=== PATIENT | female | born 1985 | race African-American/Black ===

== ENCOUNTER 2018-03-08 03:06 | Emergency (ER) | payer MEDICAID, OTHER ==
[~2018-03-08] VITALS: Ht 167.6 cm; Wt 91.0 kg
[2018-03-08] MEDS ORDERED: BACITRACIN ZINC OINT UDPKT TOP ONE (06:45)
[2018-03-08 07:04] LABS: BASOPHILS % 0.5 % (0.0-2.0); EOSINOPHILS % 0.7 % (0.0-5.0); HEMATOCRIT. 35.4 % (36.0-48.0); HEMOGLOBIN. 11.9 g/dL (12.0-16.0); LYMPHOCYTES % 54.2 % (20.0-50.0); MEAN CORPUSCULAR HEMOGLOBIN 31.1 pg (28.0-32.0); MEAN CORPUSCULAR VOLUME 92.3 fL (81.0-99.0); MEAN PLATELET VOLUME 8.8 fl (7.4-10.4); NEUTROPHILS % 38.6 % (40.0-76.0); PLATELET 281 x1000/uL (130-400); RED BLOOD CELL COUNT 3.84 mill/uL (4.2-5.4); RED CELL DISTRIBUTION WIDTH 17.4 % (11.6-14.6)
[2018-03-08 07:05] LABS: CLARITY URINE CLEAR (CLEAR); COLOR URINE YELLOW (YELLOW); KETONES URINE NEGATIVE (NEGATIVE); LEUKOCYTE ESTERASE URINE NEGATIVE (NEGATIVE); NITRITE URINE NEGATIVE (NEGATIVE); OCCULT BLOOD URINE NEGATIVE (NEGATIVE); PROTEIN URINE NEGATIVE (NEGATIVE); SPECIFIC GRAVITY URINE 1.007 (1.005-1.030)
[2018-03-08 07:22] LABS: CHLORIDE 105 mEq/L (98-107)
[2018-03-08 07:24] LABS: HCG SCREEN NEGATIVE
[2018-03-08 07:26] LABS: ETHANOL BLOOD 132 mg/dL
[2018-03-08 08:33] LABS: *AMPHETAMINES SCREEN URINE NEGATIVE (NEGATIVE); *BARBITURATES SCREEN URINE NEGATIVE (NEGATIVE); *BENZODIAZEPINES SCREEN URINE NEGATIVE (NEGATIVE)
[2018-03-08 08:34] LABS: CANNABINOID URINE SCREEN NEGATIVE (NEGATIVE); METHADONE URINE SCREEN NEGATIVE (NEGATIVE); OPIATES URINE SCREEN NEGATIVE (NEGATIVE); PHENCYCLIDINE URINE SCREEN NEGATIVE (NEGATIVE)
[2018-03-08 08:37] LABS: *COCAINE SCREEN URINE NEGATIVE (NEGATIVE)
[2018-03-08] MEDS ORDERED: LORAZEPAM 1MG TABLET PO ONE ×2 (11:00→20:45)
[2018-03-09] MEDS ORDERED: BUSPIRONE HCL 10MG TABLET PO ONE (12:00)
[2018-03-09] MEDS ORDERED: LORAZEPAM 1MG TABLET PO ONE (18:00)
[2018-03-09] MEDS ORDERED: OLANZAPINE 10MG TABLET ODT PO ONE (21:30)
[2018-03-10] MEDS ORDERED: LORAZEPAM 1MG TABLET PO ONE (09:45)
[2018-03-10] MEDS ORDERED: TRAZODONE HCL 100MG TABLET PO STA (15:23)
[2018-03-10] MEDS ORDERED: BUSPIRONE HCL 10MG TABLET PO ONE (15:30)
[2018-03-10 18:02] VITALS: BP 117/62
== END 2018-03-10 18:05 | disposition home or self-care (01) ==
LOC: ER 03:23
DX: S61.512A Laceration without foreign body of left wrist, initial encounter (principal); R45.851 Suicidal ideations; F10.10 Alcohol abuse, uncomplicated; F31.9 Bipolar disorder, unspecified; F20.9 Schizophrenia, unspecified; F17.200 Nicotine dependence, unspecified, uncomplicated; W45.8XXA Other foreign body or object entering through skin, initial encounter; Y93.89 Activity, other specified; Y92.89 Other specified places as the place of occurrence of the external cause; Y99.8 Other external cause status; Y90.6 Blood alcohol level of 120-199 mg/100 ml; Z88.0 Allergy status to penicillin
CPT/HCPCS: 36415; 80053; 80305; 80307; 80329; 81003; 84703; 85025; 99284; G0482

== ENCOUNTER 2018-05-18 00:51 | Emergency (ER) | payer MEDICAID ==
[~2018-05-18] VITALS: Ht 165.1 cm; Wt 87.0 kg
[2018-05-18] MEDS ORDERED: LORAZEPAM 2MG/ML CPJ IM STA (01:11)
[2018-05-18] MEDS ORDERED: HALOPERIDOL LACTATE 5MG/ML VIAL IM STA (01:11)
[2018-05-18] MEDS ORDERED: HALOPERIDOL LACTATE 5MG/ML VIAL IM ONE (01:18)
[2018-05-18] MEDS ORDERED: LORAZEPAM 2MG/ML CPJ ONE (01:19)
[2018-05-18 02:27] LABS: BASOPHILS % 0.7 % (0.0-2.0); EOSINOPHILS % 0.8 % (0.0-5.0); HEMATOCRIT. 33.9 % (36.0-48.0); HEMOGLOBIN. 11.3 g/dL (12.0-16.0); LYMPHOCYTES % 30.5 % (20.0-50.0); MEAN CORPUSCULAR HEMOGLOBIN 32.8 pg (28.0-32.0); MEAN CORPUSCULAR VOLUME 98.3 fL (81.0-99.0); MEAN PLATELET VOLUME 8.5 fl (7.4-10.4); MONOCYTES % 8.5 % (2.0-8.0); NEUTROPHILS % 59.5 % (40.0-76.0); PLATELET 315 x1000/uL (130-400); RED BLOOD CELL COUNT 3.45 mill/uL (4.2-5.4); RED CELL DISTRIBUTION WIDTH 16.1 % (11.6-14.6)
[2018-05-18 02:32] LABS: CHLORIDE 108 mEq/L (98-107)
[2018-05-18 02:33] LABS: CLARITY URINE CLEAR (CLEAR); COLOR URINE YELLOW (YELLOW); KETONES URINE NEGATIVE (NEGATIVE); LEUKOCYTE ESTERASE URINE NEGATIVE (NEGATIVE); NITRITE URINE NEGATIVE (NEGATIVE); OCCULT BLOOD URINE NEGATIVE (NEGATIVE); PROTEIN URINE NEGATIVE (NEGATIVE); SPECIFIC GRAVITY URINE 1.003 (1.005-1.030); UROBILINOGEN URINE 0.2 E.U./dL (0.2-1.0)
[2018-05-18 02:36] LABS: ETHANOL BLOOD 197 mg/dL
[2018-05-18 02:46] LABS: *AMPHETAMINES SCREEN URINE NEGATIVE (NEGATIVE); *BARBITURATES SCREEN URINE NEGATIVE (NEGATIVE)
[2018-05-18 02:47] LABS: *COCAINE SCREEN URINE NEGATIVE (NEGATIVE); METHADONE URINE SCREEN NEGATIVE (NEGATIVE); OPIATES URINE SCREEN NEGATIVE (NEGATIVE); PHENCYCLIDINE URINE SCREEN NEGATIVE (NEGATIVE)
[2018-05-18 03:01] LABS: *BENZODIAZEPINES SCREEN URINE PRESUMTIVE POSITIVE (NEGATIVE); CANNABINOID URINE SCREEN PRESUMTIVE POSITIVE (NEGATIVE)
[2018-05-18] MEDS ORDERED: LORAZEPAM 1MG TABLET PO ONE (06:30)
[2018-05-18 11:00] VITALS: BP 137/95
== END 2018-05-18 11:03 | disposition home or self-care (01) ==
LOC: ER 00:51
DX: R45.851 Suicidal ideations (principal); F20.9 Schizophrenia, unspecified; F31.9 Bipolar disorder, unspecified; F17.200 Nicotine dependence, unspecified, uncomplicated; F12.10 Cannabis abuse, uncomplicated; F13.10 Sedative, hypnotic or anxiolytic abuse, uncomplicated; F10.20 Alcohol dependence, uncomplicated; Y90.6 Blood alcohol level of 120-199 mg/100 ml; Z88.0 Allergy status to penicillin; Z78.1 Physical restraint status
CPT/HCPCS: 36415; 80053; 80305; 80307; 80329; 81003; 81025; 82962; 83690; 85025; 93005; 96372; 99285; G0482; J1630; J2060

== ENCOUNTER 2018-06-02 12:20 | Inpatient (IN) | payer MEDICAID ==
[~2018-06-02] VITALS: Ht 165.1 cm; Wt 60.3 kg
[2018-06-02] MEDS ORDERED: FAMOTIDINE 20MG/2ML VIAL IV STA (12:31)
[2018-06-02] MEDS ORDERED: MAGNESIUM/ALUMINUM HYDROXIDE/SIMETHICONE 30ML UDC PO STA (12:31)
[2018-06-02] MEDS ORDERED: SODIUM CHLORIDE 0.9% 1,000 ML IV ONE (12:31)
[2018-06-02] MEDS ORDERED: MORPHINE SULFATE 4 MG/ML CPJ (NOT FOR IM USE) IV STA (12:31)
[2018-06-02] MEDS ORDERED: ONDANSETRON HCL 4MG/2ML INJ IV STA (12:31)
[2018-06-02 13:26] LABS: BASOPHILS % 0.7 % (0.0-2.0); EOSINOPHILS % 0.2 % (0.0-5.0); HEMATOCRIT. 39.7 % (36.0-48.0); LYMPHOCYTES % 15.3 % (20.0-50.0); MEAN CORPUSCULAR HEMOGLOBIN 31.6 pg (28.0-32.0); MEAN CORPUSCULAR VOLUME 96.3 fL (81.0-99.0); MEAN PLATELET VOLUME 9.5 fl (7.4-10.4); MONOCYTES % 5.2 % (2.0-8.0); NEUTROPHILS % 78.6 % (40.0-76.0); PLATELET 325 x1000/uL (130-400); RED BLOOD CELL COUNT 4.12 mill/uL (4.2-5.4)
[2018-06-02 13:30] LABS: CHLORIDE 102 mEq/L (98-107)
[2018-06-02 13:31] LABS: PROTHROMBIN TIME 10.4 sec (9.1-11.1)
[2018-06-02] MEDS ORDERED: FENTANYL CITRATE/PF 50MCG/ML 2ML VIAL IV ONE (13:45)
[2018-06-02 14:46] LABS: CLARITY URINE CLOUDY (CLEAR); COLOR URINE YELLOW (YELLOW); KETONES URINE TRACE (NEGATIVE); LEUKOCYTE ESTERASE URINE NEGATIVE (NEGATIVE); NITRITE URINE NEGATIVE (NEGATIVE); OCCULT BLOOD URINE NEGATIVE (NEGATIVE); PH URINE >=9.0 (4.5-8.0); PROTEIN URINE NEGATIVE (NEGATIVE); SPECIFIC GRAVITY URINE 1.024 (1.005-1.030); UROBILINOGEN URINE 0.2 E.U./dL (0.2-1.0)
[2018-06-02] MEDS ORDERED: HYDROMORPHONE HCL/PF 2MG/ML CPJ IV PRN (16:00)
[2018-06-02] MEDS ORDERED: ONDANSETRON HCL 4MG/2ML INJ IV PRN (16:16)
[2018-06-02] MEDS ORDERED: KETOROLAC 30MG/ML VIAL IV PRN (16:16)
[2018-06-02 16:30] VITALS: BP 122/85
[2018-06-02] MEDS: FOLIC ACID 1 MG, THIAMINE HCL 100 MG, MVI, ADULT NO.1 10 ML in DEXTROSE 5% WATER 1,000 ML IV SCH ×4 (19:49)
[2018-06-02 20:00] VITALS: BP 133/95
[2018-06-02] MEDS: ONDANSETRON HCL 4MG/2ML INJ IV PRN (23:40)
[2018-06-02] MEDS: KETOROLAC 30MG/ML VIAL IV PRN (23:41)
[2018-06-02] MEDS: CHLORDIAZEPOXIDE 25MG CAPSULE PO SCH (23:41)
[2018-06-03] VITALS: BP 131/91
[2018-06-03 04:00] VITALS: BP 122/79
[2018-06-03] MEDS: KETOROLAC 30MG/ML VIAL IV PRN ×2 (05:16→15:36)
[2018-06-03] MEDS: CHLORDIAZEPOXIDE 25MG CAPSULE PO SCH ×3 (06:00→22:38)
[2018-06-03 06:36] LABS: BASOPHILS % 0.8 % (0.0-2.0); EOSINOPHILS % 0.5 % (0.0-5.0); HEMATOCRIT. 35.7 % (36.0-48.0); HEMOGLOBIN. 11.9 g/dL (12.0-16.0); LYMPHOCYTES % 15.5 % (20.0-50.0); MEAN CORPUSCULAR HEMOGLOBIN 32.1 pg (28.0-32.0); MEAN CORPUSCULAR VOLUME 96.1 fL (81.0-99.0); MEAN PLATELET VOLUME 9.1 fl (7.4-10.4); MONOCYTES % 7.5 % (2.0-8.0); NEUTROPHILS % 75.7 % (40.0-76.0); PLATELET 269 x1000/uL (130-400); RED BLOOD CELL COUNT 3.72 mill/uL (4.2-5.4); RED CELL DISTRIBUTION WIDTH 16.8 % (11.6-14.6)
[2018-06-03 07:13] LABS: CHLORIDE 100 mEq/L (98-107)
[2018-06-03] MEDS: DEXT 5%/0.45% NACL 1000ML 1,000 ML IV SCH ×3 (07:24→23:30)
[2018-06-03 08:00] VITALS: BP 118/85
[2018-06-03] MEDS: PANTOPRAZOLE SODIUM 40 MG/VIAL IV SCH (08:41)
[2018-06-03] MEDS ORDERED: POTASSIUM CHLORIDE 20MEQ TABLET SR PO SCH (09:45)
[2018-06-03 12:00] VITALS: BP 131/93
[2018-06-03] MEDS: HYDROMORPHONE HCL/PF 2MG/ML CPJ IV PRN ×3 (12:13→23:06)
[2018-06-03 16:00] VITALS: BP 123/83
[2018-06-03 20:00] VITALS: BP 142/98
[2018-06-03] MEDS: FOLIC ACID 1 MG, THIAMINE HCL 100 MG, MVI, ADULT NO.1 10 ML in DEXTROSE 5% WATER 1,000 ML IV SCH ×4 (22:38)
[2018-06-04] VITALS: BP 120/78
[2018-06-04] MEDS: ONDANSETRON HCL 4MG/2ML INJ IV PRN ×2 (01:19→13:02)
[2018-06-04] MEDS: HYDROMORPHONE HCL/PF 2MG/ML CPJ IV PRN ×4 (03:16→20:43)
[2018-06-04 04:00] VITALS: BP 134/55
[2018-06-04] MEDS: CHLORDIAZEPOXIDE 25MG CAPSULE PO SCH ×3 (06:00→22:06)
[2018-06-04 08:00] VITALS: BP 161/98
[2018-06-04] MEDS: HYDROCODONE/ACETAMINOPHEN 5/325MG TABLET PO PRN ×2 (10:00→18:50)
[2018-06-04] MEDS ORDERED: LIDOCAINE HCL 1% 20ML VIAL (Pyxis) INJ ONE (10:47)
[2018-06-04 12:00] VITALS: BP 123/84
[2018-06-04] MEDS: PANTOPRAZOLE SODIUM 40 MG/VIAL IV SCH (12:03)
[2018-06-04 13:45] LABS: AMYLASE 818 IU/L (25-115)
[2018-06-04] MEDS: DEXT 5%/0.45% NACL 1000ML 1,000 ML IV SCH ×2 (14:49→23:12)
[2018-06-04] MEDS: KETOROLAC 30MG/ML VIAL IV PRN (14:49)
[2018-06-04 16:00] VITALS: BP 124/80
[2018-06-04 16:18] LABS: CHLORIDE 98 mEq/L (98-107)
[2018-06-04 20:00] VITALS: BP 116/71
[2018-06-04] MEDS: FOLIC ACID 1 MG, THIAMINE HCL 100 MG, MVI, ADULT NO.1 10 ML in DEXTROSE 5% WATER 1,000 ML IV SCH ×4 (22:06)
[2018-06-05] VITALS: BP 122/74
[2018-06-05] MEDS: HYDROCODONE/ACETAMINOPHEN 5/325MG TABLET PO PRN (00:05)
[2018-06-05] MEDS ORDERED: POTASSIUM CHLORIDE 20MEQ TABLET SR PO NR ×3 (01:00→16:45)
[2018-06-05] MEDS: HYDROMORPHONE HCL/PF 2MG/ML CPJ IV PRN ×5 (02:34→20:55)
[2018-06-05 04:00] VITALS: BP 110/74
[2018-06-05] MEDS: KETOROLAC 30MG/ML VIAL IV PRN ×3 (04:26→18:35)
[2018-06-05] MEDS: DEXT 5%/0.45% NACL 1000ML 1,000 ML IV SCH ×2 (05:06→16:08)
[2018-06-05] MEDS: CHLORDIAZEPOXIDE 25MG CAPSULE PO SCH ×3 (05:06→21:31)
[2018-06-05 08:00] VITALS: BP 114/85
[2018-06-05] MEDS: PANTOPRAZOLE SODIUM 40 MG/VIAL IV SCH (08:32)
[2018-06-05 12:00] VITALS: BP 112/71
[2018-06-05 12:30] LABS: CHLORIDE 99 mEq/L (98-107)
[2018-06-05 12:33] LABS: AMYLASE 379 IU/L (25-115)
[2018-06-05 16:00] VITALS: BP 141/90
[2018-06-05 20:00] VITALS: BP 109/65
[2018-06-05] MEDS: FOLIC ACID 1 MG, THIAMINE HCL 100 MG, MVI, ADULT NO.1 10 ML in DEXTROSE 5% WATER 1,000 ML IV SCH ×4 (20:12)
[2018-06-06] VITALS: BP 107/50
[2018-06-06] MEDS: KETOROLAC 30MG/ML VIAL IV PRN ×2 (00:18→18:26)
[2018-06-06] MEDS: HYDROMORPHONE HCL/PF 2MG/ML CPJ IV PRN ×5 (01:28→21:33)
[2018-06-06] MEDS: DEXT 5%/0.45% NACL 1000ML 1,000 ML IV SCH ×2 (01:29→13:58)
[2018-06-06 04:00] VITALS: BP 112/76
[2018-06-06] MEDS: CHLORDIAZEPOXIDE 25MG CAPSULE PO SCH ×3 (05:39→21:00)
[2018-06-06 08:00] VITALS: BP 106/69
[2018-06-06] MEDS: FAMOTIDINE 20MG/2ML VIAL IV SCH ×2 (09:56→20:17)
[2018-06-06 12:00] VITALS: BP 126/82
[2018-06-06 16:00] VITALS: BP 115/77
[2018-06-06] MEDS: FOLIC ACID 1 MG, THIAMINE HCL 100 MG, MVI, ADULT NO.1 10 ML in DEXTROSE 5% WATER 1,000 ML IV SCH ×4 (19:55)
[2018-06-06 20:00] VITALS: BP 112/73
[2018-06-06 22:36] LABS: CHLORIDE 100 mEq/L (98-107)
[2018-06-07] VITALS: BP 95/57
[2018-06-07] MEDS: HYDROMORPHONE HCL/PF 2MG/ML CPJ IV PRN ×3 (03:23→21:48)
[2018-06-07 04:00] VITALS: BP 110/71
[2018-06-07] MEDS: CHLORDIAZEPOXIDE 25MG CAPSULE PO SCH ×3 (06:22→22:00)
[2018-06-07 08:00] VITALS: BP 141/89
[2018-06-07] MEDS: FAMOTIDINE 20MG/2ML VIAL IV SCH ×2 (09:14→21:48)
[2018-06-07 11:02] LABS: BASOPHILS % 0.5 % (0.0-2.0); EOSINOPHILS % 3.6 % (0.0-5.0); HEMATOCRIT. 31.1 % (36.0-48.0); HEMOGLOBIN. 10.2 g/dL (12.0-16.0); LYMPHOCYTES % 16.2 % (20.0-50.0); MEAN CORPUSCULAR HEMOGLOBIN 31.8 pg (28.0-32.0); MEAN CORPUSCULAR VOLUME 97.4 fL (81.0-99.0); MEAN PLATELET VOLUME 9.1 fl (7.4-10.4); MONOCYTES % 9.2 % (2.0-8.0); NEUTROPHILS % 70.5 % (40.0-76.0); PLATELET 252 x1000/uL (130-400); RED CELL DISTRIBUTION WIDTH 17.3 % (11.6-14.6)
[2018-06-07] MEDS ORDERED: ACET-2178 PO (11:07)
[2018-06-07] MEDS ORDERED: L25 PO (11:08)
[2018-06-07 11:22] LABS: CHLORIDE 101 mEq/L (98-107)
[2018-06-07 12:00] VITALS: BP 80/68
[2018-06-07] MEDS: ACETAMINOPHEN 325MG TABLET PO PRN (13:56)
[2018-06-07] MEDS ORDERED: POTASSIUM CHLORIDE 20MEQ TABLET SR PO NR (14:00)
[2018-06-07 16:00] VITALS: BP 129/87
[2018-06-07] MEDS: HYDROCODONE/ACETAMINOPHEN 5/325MG TABLET PO PRN (16:21)
[2018-06-07 20:00] VITALS: BP 132/81
[2018-06-07] MEDS: FOLIC ACID 1 MG, THIAMINE HCL 100 MG, MVI, ADULT NO.1 10 ML in DEXTROSE 5% WATER 1,000 ML IV SCH ×4 (21:48)
[2018-06-07 23:36] LABS: HCG SCREEN NEGATIVE
[2018-06-08] VITALS: BP_SYST 124; BP_SYST 131; BP_DIAS 86; BP_DIAS 87
[2018-06-08] MEDS: HYDROCODONE/ACETAMINOPHEN 5/325MG TABLET PO PRN ×3 (00:22→16:58)
[2018-06-08 04:00] VITALS: BP 119/81
[2018-06-08] MEDS: HYDROMORPHONE HCL/PF 2MG/ML CPJ IV PRN ×3 (05:03→20:07)
[2018-06-08] MEDS ORDERED: CHLORDIAZEPOXIDE 25MG CAPSULE PO SCH (06:00)
[2018-06-08 07:31] LABS: BASOPHILS % 0.6 % (0.0-2.0); EOSINOPHILS % 3.8 % (0.0-5.0); HEMATOCRIT. 33.3 % (36.0-48.0); HEMOGLOBIN. 10.7 g/dL (12.0-16.0); LYMPHOCYTES % 22.7 % (20.0-50.0); MEAN CORPUSCULAR HEMOGLOBIN 31.6 pg (28.0-32.0); MEAN PLATELET VOLUME 8.3 fl (7.4-10.4); MONOCYTES % 11.2 % (2.0-8.0); NEUTROPHILS % 61.7 % (40.0-76.0); PLATELET 275 x1000/uL (130-400); RED BLOOD CELL COUNT 3.39 mill/uL (4.2-5.4); RED CELL DISTRIBUTION WIDTH 17.2 % (11.6-14.6)
[2018-06-08 07:52] LABS: CHLORIDE 102 mEq/L (98-107)
[2018-06-08 08:00] VITALS: BP 118/74
[2018-06-08] MEDS: FAMOTIDINE 20MG/2ML VIAL IV SCH ×2 (08:28→21:21)
[2018-06-08] MEDS: DEXT 5%/0.45% NACL 1000ML 1,000 ML IV SCH ×3 (08:28→23:38)
[2018-06-08 12:00] VITALS: BP 114/83
[2018-06-08 16:00] VITALS: BP 127/79
[2018-06-08 20:00] VITALS: BP 107/78
[2018-06-08] MEDS: FOLIC ACID 1 MG, THIAMINE HCL 100 MG, MVI, ADULT NO.1 10 ML in DEXTROSE 5% WATER 1,000 ML IV SCH ×4 (20:36)
[2018-06-09] VITALS (7 sets, daily range): BP systolic 108–129; BP diastolic 67–92
[2018-06-09] MEDS: HYDROMORPHONE HCL/PF 2MG/ML CPJ IV PRN ×4 (02:15→20:48)
[2018-06-09] MEDS: FAMOTIDINE 20MG/2ML VIAL IV SCH ×2 (08:27→20:47)
[2018-06-09] MEDS: DEXT 5%/0.45% NACL 1000ML 1,000 ML IV SCH ×2 (09:38→19:00)
[2018-06-09] MEDS ORDERED: HYDROCODONE/ACETAMINOPHEN 5/325MG TABLET PO PRN (10:00)
[2018-06-09] MEDS: HYDROCODONE/ACETAMINOPHEN 5/325MG TABLET PO PRN ×3 (12:14→23:33)
[2018-06-09] MEDS: CHLORDIAZEPOXIDE 25MG CAPSULE PO SCH ×2 (14:46→21:21)
[2018-06-09] MEDS ORDERED: ONDANSETRON HCL 4MG/2ML INJ IV PRN (15:30)
[2018-06-09] MEDS: FOLIC ACID 1 MG, THIAMINE HCL 100 MG, MVI, ADULT NO.1 10 ML in DEXTROSE 5% WATER 1,000 ML IV SCH ×4 (21:21)
[2018-06-10] VITALS: BP 119/88
[2018-06-10] MEDS: HYDROMORPHONE HCL/PF 2MG/ML CPJ IV PRN (03:10)
[2018-06-10 04:00] VITALS: BP 128/90
[2018-06-10] MEDS: CHLORDIAZEPOXIDE 25MG CAPSULE PO SCH (05:33)
[2018-06-10] MEDS: DEXT 5%/0.45% NACL 1000ML 1,000 ML IV SCH (05:33)
[2018-06-10 08:00] VITALS: BP 118/86
[2018-06-10] MEDS: FAMOTIDINE 20MG/2ML VIAL IV SCH (08:57)
[2018-06-10] MEDS: ACETAMINOPHEN 325MG TABLET PO PRN (09:16)
[2018-06-10 13:17] LABS: CLARITY URINE CLEAR (CLEAR); COLOR URINE YELLOW (YELLOW); KETONES URINE NEGATIVE (NEGATIVE); LEUKOCYTE ESTERASE URINE NEGATIVE (NEGATIVE); NITRITE URINE NEGATIVE (NEGATIVE); OCCULT BLOOD URINE NEGATIVE (NEGATIVE); PROTEIN URINE NEGATIVE (NEGATIVE); SPECIFIC GRAVITY URINE 1.004 (1.005-1.030); UROBILINOGEN URINE 0.2 E.U./dL (0.2-1.0)
[2018-06-10 15:16] LABS: *AMPHETAMINES SCREEN URINE NEGATIVE (NEGATIVE); *BARBITURATES SCREEN URINE NEGATIVE (NEGATIVE)
[2018-06-10 15:17] LABS: *COCAINE SCREEN URINE NEGATIVE (NEGATIVE); METHADONE URINE SCREEN NEGATIVE (NEGATIVE); PHENCYCLIDINE URINE SCREEN NEGATIVE (NEGATIVE)
[2018-06-10 15:22] LABS: *BENZODIAZEPINES SCREEN URINE PRESUMTIVE POSITIVE (NEGATIVE); OPIATES URINE SCREEN PRESUMTIVE POSITIVE (NEGATIVE)
[2018-06-10 15:23] LABS: CANNABINOID URINE SCREEN PRESUMTIVE POSITIVE (NEGATIVE)
[2018-06-10 15:29] VITALS: BP 128/86
== END 2018-06-10 16:06 | disposition home or self-care (01) | DRG 282 ==
LOC: ER 12:40 → 6EST 13:44 → ENRESERV 15:47 → 6EST 17:25
PROVIDERS: ADMIT Internal Medicine; ATTEND Internal Medicine
PROC: 02HV33Z Insertion of Infusion Device into Superior Vena Cava, Percutaneous Approach (ICD-10-PCS; principal; 2018-06-04)
PROC: B5181ZA Fluoroscopy of Superior Vena Cava using Low Osmolar Contrast, Guidance (ICD-10-PCS; 2018-06-04)
PROC: B548ZZA Ultrasonography of Superior Vena Cava, Guidance (ICD-10-PCS; 2018-06-04)
DX: K85.20 Alcohol induced acute pancreatitis without necrosis or infection (principal); F20.9 Schizophrenia, unspecified; F10.10 Alcohol abuse, uncomplicated; F17.210 Nicotine dependence, cigarettes, uncomplicated; F31.9 Bipolar disorder, unspecified; Z98.82 Breast implant status; Z88.0 Allergy status to penicillin; Z71.41 Alcohol abuse counseling and surveillance of alcoholic; Z76.5 Malingerer [conscious simulation]; Z91.5 Personal history of self-harm
CPT/HCPCS: 36415; 36569; 71045; 76937; 77001; 80048; 80305; 81025; 82150; 84484; 84703; 93005; 96361; 96374; 96375; 99285; C1725; C1769; C1893; C9113; G0482; J1170; J1885; J2270; J2405; J3010; J3411; J3490; J7030; J7070

== ENCOUNTER 2018-07-17 12:54 | Emergency (ER) | payer MEDICAID ==
[~2018-07-17] VITALS: Ht 167.6 cm; Wt 100.0 kg
[~2018-07-17 12:54] MED LIST: ACET-2178 PO; L25 PO
[2018-07-17] MEDS ORDERED: LORAZEPAM 2MG/ML CPJ IM ONE (14:15)
[2018-07-17] MEDS ORDERED: HALOPERIDOL LACTATE 5MG/ML VIAL IM ONE (14:15)
[2018-07-17 14:40] LABS: BASOPHILS % 0.3 % (0.0-2.0); EOSINOPHILS % 0.6 % (0.0-5.0); HEMATOCRIT. 38.8 % (36.0-48.0); HEMOGLOBIN. 12.4 g/dL (12.0-16.0); MEAN CORPUSCULAR HEMOGLOBIN 30.1 pg (28.0-32.0); MEAN PLATELET VOLUME 8.7 fl (7.4-10.4); MONOCYTES % 3.7 % (2.0-8.0); NEUTROPHILS % 49.4 % (40.0-76.0); PLATELET 380 x1000/uL (130-400); RED BLOOD CELL COUNT 4.13 mill/uL (4.2-5.4); RED CELL DISTRIBUTION WIDTH 16.6 % (11.6-14.6)
[2018-07-17 14:46] LABS: CHLORIDE 106 mEq/L (98-107)
[2018-07-17 15:00] LABS: HCG SCREEN NEGATIVE
[2018-07-17 15:04] LABS: CLARITY URINE CLEAR (CLEAR); COLOR URINE YELLOW (YELLOW); KETONES URINE NEGATIVE (NEGATIVE); LEUKOCYTE ESTERASE URINE NEGATIVE (NEGATIVE); NITRITE URINE NEGATIVE (NEGATIVE); OCCULT BLOOD URINE NEGATIVE (NEGATIVE); PH URINE 6.5 (4.5-8.0); PROTEIN URINE NEGATIVE (NEGATIVE); SPECIFIC GRAVITY URINE 1.002 (1.005-1.030); UROBILINOGEN URINE 0.2 E.U./dL (0.2-1.0)
[2018-07-17 15:33] LABS: ETHANOL BLOOD 311 mg/dL
[2018-07-17 15:35] LABS: *AMPHETAMINES SCREEN URINE NEGATIVE (NEGATIVE); *BARBITURATES SCREEN URINE NEGATIVE (NEGATIVE); *BENZODIAZEPINES SCREEN URINE NEGATIVE (NEGATIVE); *COCAINE SCREEN URINE NEGATIVE (NEGATIVE)
[2018-07-17 15:36] LABS: METHADONE URINE SCREEN NEGATIVE (NEGATIVE); OPIATES URINE SCREEN NEGATIVE (NEGATIVE); PHENCYCLIDINE URINE SCREEN NEGATIVE (NEGATIVE)
[2018-07-17 15:52] LABS: CANNABINOID URINE SCREEN PRESUMTIVE POSITIVE (NEGATIVE)
[2018-07-17] MEDS ORDERED: LORAZEPAM 2MG/ML CPJ IV ONE (16:45)
[2018-07-17] MEDS ORDERED: SODIUM CHLORIDE 0.9% 1,000 ML IV ONE (16:45)
[2018-07-18] MEDS ORDERED: DIPHENHYDRAMINE 50MG CAPSULE PO ONE (02:30)
[2018-07-18 14:16] VITALS: BP 129/81
== END 2018-07-18 18:50 | disposition home or self-care (01) ==
LOC: ER 12:54
DX: F10.229 Alcohol dependence with intoxication, unspecified (principal); F12.10 Cannabis abuse, uncomplicated; R45.1 Restlessness and agitation; F20.9 Schizophrenia, unspecified; Y90.8 Blood alcohol level of 240 mg/100 ml or more; Z88.0 Allergy status to penicillin; Z78.1 Physical restraint status; Z59.0 Homelessness
CPT/HCPCS: 36415; 70450; 80053; 80305; 80307; 80329; 81003; 81025; 84703; 85025; 96361; 96372; 96374; 99284; G0482; J1630; J2060; J7030; Q0163

== ENCOUNTER 2018-10-24 16:49 | Emergency (ER) | payer MEDICAID ==
[~2018-10-24] VITALS: Ht 165.1 cm; Wt 90.0 kg
[2018-10-24] MEDS ORDERED: ONDANSETRON HCL 4MG/2ML INJ IV STA (17:33)
[2018-10-24] MEDS ORDERED: SODIUM CHLORIDE 0.9% 1,000 ML IV ONE (17:33)
[2018-10-24] MEDS ORDERED: FAMOTIDINE 20MG/2ML VIAL IV ONE (18:15)
[2018-10-24] MEDS ORDERED: MORPHINE SULFATE 4 MG/ML CPJ (NOT FOR IM USE) IV ONE (18:15)
[2018-10-24 18:50] LABS: BASOPHILS % 0.4 % (0.0-2.0); EOSINOPHILS % 0.1 % (0.0-5.0); HEMATOCRIT. 37.1 % (36.0-48.0); HEMOGLOBIN. 12.1 g/dL (12.0-16.0); MEAN CORPUSCULAR HEMOGLOBIN 30.9 pg (28.0-32.0); MEAN CORPUSCULAR VOLUME 94.3 fL (81.0-99.0); MEAN PLATELET VOLUME 9.1 fl (7.4-10.4); MONOCYTES % 8.6 % (2.0-8.0); NEUTROPHILS % 60.9 % (40.0-76.0); PLATELET 170 x1000/uL (130-400); RED BLOOD CELL COUNT 3.93 mill/uL (4.2-5.4); RED CELL DISTRIBUTION WIDTH 19.2 % (11.6-14.6)
[2018-10-24 18:58] LABS: CHLORIDE 100 mEq/L (98-107)
[2018-10-24 19:02] LABS: ETHANOL BLOOD 219 mg/dL
[2018-10-24 19:03] LABS: CLARITY URINE CLOUDY (CLEAR); COLOR URINE DARK YELLOW (YELLOW); KETONES URINE 1+ (NEGATIVE); LEUKOCYTE ESTERASE URINE NEGATIVE (NEGATIVE); NITRITE URINE NEGATIVE (NEGATIVE); OCCULT BLOOD URINE NEGATIVE (NEGATIVE); PROTEIN URINE 1+ (NEGATIVE); SPECIFIC GRAVITY URINE 1.026 (1.005-1.030)
[2018-10-24 19:09] LABS: HCG SCREEN NEGATIVE
[2018-10-24 19:11] LABS: *AMPHETAMINES SCREEN URINE NEGATIVE (NEGATIVE); *BARBITURATES SCREEN URINE NEGATIVE (NEGATIVE); *BENZODIAZEPINES SCREEN URINE NEGATIVE (NEGATIVE); OPIATES URINE SCREEN NEGATIVE (NEGATIVE); PHENCYCLIDINE URINE SCREEN NEGATIVE (NEGATIVE)
[2018-10-24 19:13] LABS: *COCAINE SCREEN URINE PRESUMTIVE POSITIVE (NEGATIVE); CANNABINOID URINE SCREEN PRESUMTIVE POSITIVE (NEGATIVE); METHADONE URINE SCREEN NEGATIVE (NEGATIVE)
[2018-10-24 22:00] VITALS: BP 104/66
== END 2018-10-24 22:00 | disposition home or self-care (01) ==
LOC: ER 16:49
DX: T51.0X1A Toxic effect of ethanol, accidental (unintentional), initial encounter (principal); F17.200 Nicotine dependence, unspecified, uncomplicated; F12.10 Cannabis abuse, uncomplicated; R10.13 Epigastric pain; R11.2 Nausea with vomiting, unspecified; Y92.89 Other specified places as the place of occurrence of the external cause; Z98.890 Other specified postprocedural states; Z88.0 Allergy status to penicillin
CPT/HCPCS: 36415; 80053; 80305; 80307; 80320; 80329; 81003; 81025; 83690; 84703; 85025; 96361; 96374; 96375; 99283; 99406; J2270; J2405; J3490; J7030; G0480

== ENCOUNTER 2018-10-24 22:26 | Emergency (ER) | payer MEDICAID ==
[~2018-10-24] VITALS: Ht 165.1 cm; Wt 91.0 kg
[2018-10-25 03:46] LABS: BASOPHILS % 0.3 % (0.0-2.0); EOSINOPHILS % 0.1 % (0.0-5.0); HEMOGLOBIN. 11.8 g/dL (12.0-16.0); LYMPHOCYTES % 21.4 % (20.0-50.0); MEAN CORPUSCULAR VOLUME 94.6 fL (81.0-99.0); MEAN PLATELET VOLUME 9.1 fl (7.4-10.4); MONOCYTES % 7.2 % (2.0-8.0); PLATELET 143 x1000/uL (130-400); RED CELL DISTRIBUTION WIDTH 19.4 % (11.6-14.6)
[2018-10-25 03:47] LABS: CHLORIDE 104 mEq/L (98-107)
[2018-10-25 03:50] LABS: CLARITY URINE CLEAR (CLEAR); COLOR URINE YELLOW (YELLOW); KETONES URINE 1+ (NEGATIVE); LEUKOCYTE ESTERASE URINE NEGATIVE (NEGATIVE); NITRITE URINE NEGATIVE (NEGATIVE); OCCULT BLOOD URINE TRACE (NEGATIVE); PROTEIN URINE TRACE (NEGATIVE); SPECIFIC GRAVITY URINE 1.022 (1.005-1.030)
[2018-10-25 03:51] LABS: ETHANOL BLOOD 83 mg/dL
[2018-10-25 04:10] LABS: *AMPHETAMINES SCREEN URINE NEGATIVE (NEGATIVE); *BARBITURATES SCREEN URINE NEGATIVE (NEGATIVE)
[2018-10-25 04:11] LABS: *BENZODIAZEPINES SCREEN URINE NEGATIVE (NEGATIVE); METHADONE URINE SCREEN NEGATIVE (NEGATIVE); PHENCYCLIDINE URINE SCREEN NEGATIVE (NEGATIVE)
[2018-10-25 04:21] LABS: *COCAINE SCREEN URINE PRESUMTIVE POSITIVE (NEGATIVE); CANNABINOID URINE SCREEN PRESUMTIVE POSITIVE (NEGATIVE); OPIATES URINE SCREEN PRESUMTIVE POSITIVE (NEGATIVE)
[2018-10-25] MEDS ORDERED: ACETAMINOPHEN 325MG TABLET PO ONE (07:00)
[2018-10-25] MEDS ORDERED: CEFTRIAXONE 1 G PREMIX 50 ML IV ONE (07:30)
[2018-10-25] MEDS ORDERED: CEFTRIAXONE SODIUM 1 G/VIAL IM ONE (07:45)
[2018-10-25] MEDS ORDERED: LIDOCAINE HCL 1% 20ML VIAL (Pyxis) INJ INFIL ONE (07:45)
[2018-10-25] MEDS ORDERED: ONDANSETRON HCL 4MG/2ML INJ IM STA (10:26)
[2018-10-25] MEDS ORDERED: KETOROLAC 60MG/2ML VIAL IM STA (10:26)
[2018-10-25] MEDS ORDERED: ACETAMINOPHEN 325MG TABLET PO STA (14:25)
[2018-10-25 14:40] VITALS: BP 121/80
== END 2018-10-25 14:43 ==
LOC: ER 22:26
DX: F19.10 Other psychoactive substance abuse, uncomplicated (principal); F17.210 Nicotine dependence, cigarettes, uncomplicated; F12.10 Cannabis abuse, uncomplicated; Z88.0 Allergy status to penicillin; Z79.899 Other long term (current) drug therapy
CPT/HCPCS: 36415; 80053; 80305; 80320; 81003; 85025; 96372; 99285; J0696; J1885; J2405; J3490; G0480

== ENCOUNTER 2019-07-07 22:23 | Emergency (ER) | payer MEDICAID ==
[~2019-07-07] VITALS: Ht 167.6 cm; Wt 77.0 kg
[~2019-07-07 22:23] MED LIST changes: -ACET-2178 PO; +TOPUD PO
[2019-07-07 22:31] VITALS: BP 158/100
== END 2019-07-08 02:01 | disposition left against medical advice (07) ==
LOC: ER 22:23
DX: R10.9 Unspecified abdominal pain (principal); Z53.21 Procedure and treatment not carried out due to patient leaving prior to being seen by health care provider